=== PATIENT | female | born 1960 | race Caucasian/White ===

== ENCOUNTER 2016-03-30 10:52 | Inpatient (IN) | payer OTHER ==
[~2016-03-30] VITALS: Ht 160 cm; Wt 78.6 kg
[~2016-03-30 10:52] MED LIST: ISON300 PO; MULT-71 PO; PYRI25TA4 PO; TAMS0.4C32 PO
[2016-03-30] MEDS ORDERED: ASPI-556 PO (11:04)
[2016-03-30] MEDS ORDERED: CALC-51 PO (11:04)
[2016-03-30 11:31] LABS: BASOPHILS % (AUTO) 1.2 % (0.0-2.0); EOSINOPHILS % (AUTO) 4.4 % (1.0-6.0); HEMATOCRIT 39.3 % (36-46); HEMOGLOBIN 13.3 g/dL (12.0-16.0); LYMPHOCYTES # (AUTO) 2.5 K/uL (1.0-4.8); LYMPHOCYTES % (AUTO) 43.7 % (22.0-44.0); MEAN CORPUSCULAR HEMOGLOBIN 29.3 pg (26.0-34.0); MEAN CORPUSCULAR HGB CONC 33.9 G/dL (31.0-37.0); MEAN CORPUSCULAR VOLUME 86 fL (80-100); MONOCYTES # (AUTO) 0.5 K/uL (0.1-1.0); MONOCYTES % (AUTO) 8.4 % (2.0-9.0); NEUTROPHILS # (AUTO) 2.5 K/uL (1.8-7.7); NEUTROPHILS % (AUTO) 42.3 % (40.0-70.0); PLATELET COUNT (AUTO) 169 K/uL (150-450); RED BLOOD CELL COUNT(AUTO) 4.55 MIL/uL (4.00-5.20); WHITE BLOOD COUNT (AUTO) 5.8 K/uL (4.5-11.0)
[2016-03-30 11:42] LABS: ANION GAP 10 mmol/L (8-16); CALCIUM, TOTAL 9.1 mg/dL (8.8-10.5); CARBON DIOXIDE 22 mmol/L (22-29); CHLORIDE 104 mmol/L (98-107); CREATININE 0.75 mg/dL (0.60-1.30); GLOMERULAR FILTR. RATE CALC > 60 mL/min (>60); POTASSIUM 3.6 mmol/L (3.5-5.1); SODIUM SERUM 136 mmol/L (136-145); UREA NITROGEN, BLOOD 19 mg/dL (7-18)
[2016-03-30 11:42] LABS: APPEARANCE,URINE CLOUDY (CLEAR); GLUCOSE, URINE (UA) NEGATIVE (NEGATIVE); KETONES,URINE NEGATIVE (NEGATIVE); LEUKOCYTE ESTERASE ,URINE SMALL (NEGATIVE); OCCULT BLOOD,URINE SMALL (NEGATIVE); PH,URINE 6.5 (5.0-8.0); PROTEIN,URINE TRACE (NEGATIVE)
[2016-03-30 11:44] LABS: PROTHROMBIN TIME 10.9 SEC (9.4-11.6)
[2016-03-30 11:45] LABS: ADD UA MICROSCOPIC YES
[2016-03-30 11:46] LABS: RBC,URINE 0-2 /HPF (0-2)
[2016-03-30 11:47] LABS: SQUAMOUS EPITHELIAL CELL,UR Few /LPF (None Seen)
[2016-03-30 11:56] LABS: B-TYPE NATRIURETIC PEPTIDE 34 pg/mL (0-100)
[2016-03-30 12:08] LABS: ALANINE AMINOTRANSFERASE 31 U/L (12-78); ALBUMIN 3.6 g/dL (3.4-5.0); ASPARTATE AMINOTRANSFERASE 20 U/L (15-37); BILIRUBIN,TOTAL 0.5 mg/dL (0.1-1.0); CREATINE KINASE MB 1.2 ng/mL (0-5); CREATINE KINASE, TOTAL 114 U/L (26-192); TOTAL PROTEIN, SERUM 7.1 g/dL (6.4-8.2)
[2016-03-30] MEDS ORDERED: MORPHINE SULFATE 2 MG/ML SYRINGE IVP ONE (12:15)
[2016-03-30] MEDS ORDERED: ASPIRIN 81 MG CHEWABLE TABLET PO ONE (12:30)
[2016-03-30] MEDS ORDERED: ONDANSETRON HCL 4 MG/2 ML VIAL IVP PRN ×2 (14:30→18:15)
[2016-03-30] MEDS ORDERED: ACETAMINOPHEN 325 MG TABLET PO PRN ×2 (14:30→18:15)
[2016-03-30] MEDS ORDERED: 0.9% SODIUM CHLORIDE 10 ML SYRINGE IVP PRN (14:30)
[2016-03-30] MEDS ORDERED: CIPROFLOXACIN HCL 250 MG TABLET PO ONE (14:30)
[2016-03-30] MEDS ORDERED: MAGNESIUM HYDROXIDE SUSPENSION 30 ML UDCUP PO PRN (18:15)
[2016-03-30] MEDS ORDERED: BISACODYL 10 MG RECTAL RECTAL SUPPOSITORY PR PRN (18:15)
[2016-03-30] MEDS ORDERED: OxyCODONE HCL/ACETAMINOPHEN 5-325 MG TABLET PO PRN (18:15)
[2016-03-30 20:57] VITALS: BP 115/67
[2016-03-30] MEDS: ZOLPIDEM TARTRATE 5 MG TABLET PO PRN (22:44)
[2016-03-30] MEDS: HEPARIN SODIUM,PORCINE 5,000 UNITS/ML VIAL SQ SCH (23:23)
[2016-03-30 23:42] VITALS: BP 100/55
[2016-03-31 05:35] VITALS: BP 119/75
[2016-03-31 07:42] VITALS: BP 114/60
[2016-03-31] MEDS: CALCIUM OYSTER SHELL 500 MG TABLET PO SCH (08:40)
[2016-03-31] MEDS: HEPARIN SODIUM,PORCINE 5,000 UNITS/ML VIAL SQ SCH ×3 (08:40→23:22)
[2016-03-31] MEDS: PANTOPRAZOLE SODIUM 40 MG DR TABLET PO SCH (08:40)
[2016-03-31] MEDS: ASPIRIN 81 MG EC TABLET PO SCH (08:40)
[2016-03-31 11:06] VITALS: BP 113/70
[2016-03-31 15:33] VITALS: BP 105/68
[2016-03-31 19:58] VITALS: BP 117/55
[2016-03-31] MEDS: ZOLPIDEM TARTRATE 5 MG TABLET PO PRN (20:11)
[2016-04-01 00:32] VITALS: BP 105/60
[2016-04-01 04:46] VITALS: BP 127/76
[2016-04-01 07:13] VITALS: BP 109/70
[2016-04-01] MEDS: PANTOPRAZOLE SODIUM 40 MG DR TABLET PO SCH (08:40)
[2016-04-01] MEDS: CALCIUM OYSTER SHELL 500 MG TABLET PO SCH (08:40)
[2016-04-01] MEDS: HEPARIN SODIUM,PORCINE 5,000 UNITS/ML VIAL SQ SCH (08:40)
[2016-04-01] MEDS: ASPIRIN 81 MG EC TABLET PO SCH (08:40)
[2016-04-01 11:26] VITALS: BP 100/55
[2016-04-01] MEDS ORDERED: OMEP20 PO (12:01)
== END 2016-04-01 13:05 | disposition home or self-care (01) | DRG 243 ==
LOC: EMS 10:54 → 5S 18:11
PROVIDERS: ADMIT Hospitalist; ATTEND Hospitalist
DX: K21.9 Gastro-esophageal reflux disease without esophagitis (principal); E78.5 Hyperlipidemia, unspecified; Z88.0 Allergy status to penicillin; Z88.1 Allergy status to other antibiotic agents; Z79.899 Other long term (current) drug therapy; Z79.82 Long term (current) use of aspirin; Z87.442 Personal history of urinary calculi
CPT/HCPCS: 87086; 93005; 93306; 96374; 99285; J1644; J2270

== ENCOUNTER 2017-02-08 10:58 | Emergency (ER) | payer OTHER ==
[~2017-02-08] VITALS: Ht 160 cm; Wt 78.2 kg
[~2017-02-08 10:58] MED LIST changes: +ASPI-556 PO; +CALC-1038 PO; -ISON300 PO; -MULT-71 PO; +MULT1TAB70 PO; +OMEP20 PO; -PYRI25TA4 PO; -TAMS0.4C32 PO
[2017-02-08] MEDS ORDERED: CETI-290 PO (11:43)
[2017-02-08] MEDS ORDERED: METO25XL PO (11:44)
[2017-02-08] MEDS ORDERED: SIMV-259 PO (11:45)
[2017-02-08] MEDS ORDERED: ASPI81TA42 PO (11:45)
[2017-02-08] MEDS ORDERED: CALC-26 PO (11:46)
[2017-02-08] MEDS ORDERED: DEXAMETHASONE SOD PHOS 4 MG/ML 5 ML VIAL IM ONE (12:00)
[2017-02-08] MEDS ORDERED: IPRATROPIUM BROMIDE 0.5 MG/2.5 ML NEB SOLUTION NEB ONE (12:00)
[2017-02-08] MEDS ORDERED: ALBUTEROL SULFATE 5 MG/ML 20 ML NEB SOLN [BULK] NEB ONE (12:00)
[2017-02-08] MEDS ORDERED: ACETAMINOPHEN/CODEINE 300-30 MG TABLET PO ONE (13:15)
[2017-02-08 13:17] VITALS: BP 122/72
== END 2017-02-08 13:31 | disposition home or self-care (01) ==
LOC: EMS 10:59
DX: J45.909 Unspecified asthma, uncomplicated (principal); I10 Essential (primary) hypertension; R10.12 Left upper quadrant pain; Z88.0 Allergy status to penicillin; Z88.1 Allergy status to other antibiotic agents
CPT/HCPCS: 71010; 94644; 96372; 99285; J1100; J7611

== ENCOUNTER 2024-05-26 08:20 | Emergency (ER) | payer OTHER ==
[~2024-05-26] VITALS: Ht 157.5 cm; Wt 80.5 kg
[~2024-05-26 08:20] MED LIST changes: +ALBU18HF12 IH; +ASPI-1444 PO; -ASPI-556 PO; +ATOR10TA69 PO; -CALC-1038 PO; +CEPH-558 PO; +CETI-450 PO; +CHOL100062 PO; +FLUT16SP NASAL; +FLUT1BLS6 IH; +MECL-302 PO; +MONT-40 PO; +MULT-1336 PO; -MULT1TAB70 PO; -OMEP20 PO; +OMEP40CA21 PO; +ONDA-104 PO; +OS500 PO; +PROP10TA72 PO; +SULF-261 PO
[2024-05-26 08:32] VITALS: TEMP 98.3
[2024-05-26 09:01] LABS: EOSINOPHILS % (AUTO) 4.4 % (1.0-6.0); HEMATOCRIT 39.4 % (36-46); HEMOGLOBIN 13.3 g/dL (12.0-16.0); LYMPHOCYTES # (AUTO) 2.9 K/uL (1.0-4.8); LYMPHOCYTES % (AUTO) 50.8 % (22.0-44.0); MEAN CORPUSCULAR HEMOGLOBIN 30.5 pg (26.0-34.0); MEAN CORPUSCULAR HGB CONC 33.7 G/dL (31.0-37.0); MEAN CORPUSCULAR VOLUME 91 fL (80-100); MONOCYTES # (AUTO) 0.5 K/uL (0.1-1.0); MONOCYTES % (AUTO) 8.1 % (2.0-9.0); NEUTROPHILS % (AUTO) 35.7 % (40.0-70.0); PLATELET COUNT (AUTO) 158 K/uL (150-450); RED BLOOD CELL COUNT(AUTO) 4.36 MIL/uL (4.00-5.20); RED CELL DISTRIBUTION WIDTH 13.1 % (11.5-14.5); WHITE BLOOD COUNT (AUTO) 5.7 K/uL (4.5-11.0)
[2024-05-26 09:08] LABS: ANION GAP 5 mmol/L (8-16); CARBON DIOXIDE 30 mmol/L (22-29); CHLORIDE 107 mmol/L (98-107); CREATININE 0.82 mg/dL (0.60-1.30); GLUCOSE,RANDOM 162 mg/dL (70-110); POTASSIUM 3.8 mmol/L (3.5-5.1); SODIUM SERUM 142 mmol/L (136-145); UREA NITROGEN, BLOOD 13 mg/dL (7-18)
[2024-05-26 09:09] LABS: CALCIUM, TOTAL 9.1 mg/dL (8.8-10.5); GLOMERULAR FILTR. RATE CALC > 60 mL/min (>60)
[2024-05-26] MEDS: MECLIZINE HCL 25 MG TABLET PO ONE ×2 (09:11→11:22)
[2024-05-26] MEDS ORDERED: MECL-302 PO ×2 (10:58→11:08)
[2024-05-26 11:26] VITALS: BP 123/67; PULSE 90; RESP 20; O2SAT 99
== END 2024-05-26 11:27 | disposition home or self-care (01) ==
LOC: EMS 08:22
DX: R42 Dizziness and giddiness (principal); I10 Essential (primary) hypertension; Z88.0 Allergy status to penicillin; Z79.51 Long term (current) use of inhaled steroids; Z79.82 Long term (current) use of aspirin; Z87.440 Personal history of urinary (tract) infections; Z79.899 Other long term (current) drug therapy
CPT/HCPCS: 70450; 80048; 85025; 99284